=== PATIENT | female | born 1975 | race American Indian/Alaskan Native ===

== ENCOUNTER 2017-10-28 08:26 | Emergency (ER) | payer OTHER ==
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
[2017-10-28] MEDS ORDERED: PERCOCET 5/325 PO ONE (09:29)
[2017-10-28] MEDS ORDERED: MOTRIN PO ONE (09:29)
--- NOTE | 2017-10-28 11:52 | XRay Report ---
CERVICAL SPINE, 3 views: History: Neck pain. Findings: The vertebral bodies, disk spaces, posterior elements and prevertebral soft tissues are unremarkable. The dens is intact. No acute fracture or malalignment is identified. Impression: 1. No evidence for acute injury to the cervical spine.
--- NOTE | 2017-10-28 13:26 | XRay Report ---
ROUTINE CHEST, TWO VIEWS: HISTORY: chest pain. The trachea, heart, mediastinal contour, lung agudelo and bony thorax are unremarkable. IMPRESSION: Unremarkable chest x-ray.
[2017-10-28 13:57] VITALS: BP 148/76
== END 2017-10-28 13:57 | disposition home or self-care (01) ==
LOC: ED 08:26
DX: S29.9XXA Unspecified injury of thorax, initial encounter (principal); Z88.6 Allergy status to analgesic agent; V48.5XXA Car driver injured in noncollision transport accident in traffic accident, initial encounter; Y93.89 Activity, other specified; Y92.89 Other specified places as the place of occurrence of the external cause; Y99.8 Other external cause status
CPT/HCPCS: 71046; 72040; 99283